=== PATIENT | male | born 1935 | race Caucasian/White ===

== ENCOUNTER 2018-01-11 00:53 | Inpatient (IN) | payer OTHER, MEDICARE ==
[~2018-01-11] VITALS: Ht 177.8 cm; Wt 61.2 kg
[~2018-01-11 00:53] MED LIST: ALLOPURINOL300 M1 PO; ASPIRIN EC81 M1 PO; CRESTOR10 M1 PO; DAILY MULTIPLE1 EACH PO; LISINOPRIL5 M1 PO; METOPROLOL SUCC50 M2 PO; NITROSTAT0.4 M1 SL; OXYCODONE-ACET1 EACH PO; VITAMIN B122500 MC1; VITAMIN D3400 UNI1 PO
--- NOTE | 2018-01-11 10:21 | Admission Core Measures ---
Acute Coronary Syndrome (CM) ACS Core Measures Acute Coronary Syndrome Diagnosis No Congestive Heart Failure (NEW) CHF Core Measures Congestive Heart Failure Diagnosis No Cerebrovascular Accident (NEW) CVA Core Measures CVA/TIA Diagnosis No Venous Thromboembolism VTE Core Faviola (View Protocol) VTE Risk Factors Surgery No Mechanical VTE Prophylaxis d/t N/A MechProphylax Ordered No VTE Pharm Prophylaxis d/t NA PharmProphylax ordered Problem List As ranked by this Provider includes Assessment & Plan 1. Unilateral primary osteoarthritis, right hip HOME MEDS Home Med List Allopurinol 300 MG TABLET 1 TAB PO DAILY GOUT (Reported) Aspirin (Ecotrin*) 81 MG TABLET.DR 1 TAB PO DAILY CARDIAC (Reported) Cholecalciferol (Vitamin D3) (Vitamin D3) 400 UNIT TABLET 2 TAB PO DAILY SUPPLEMENT (Reported) Lisinopril 5 MG TABLET 1 TAB PO DAILY CARDIAC (Reported) Metoprolol Succinate 50 MG TAB.ER.24H 1 TAB PO DAILY CARDIAC (Reported) Multivitamin (Daily Multiple Vitamin) 1 EACH TABLET 1 TAB PO DAILY SUPPLEMENT (Reported) Nitroglycerin (Nitrostat) 0.4 MG TAB.SUBL 1 TAB SL AD CARDIAC (Reported) Oxycodone HCl/Acetaminophen (Oxycodone-Acetaminophen 5-325) 5 MG-325 MG TABLET 1 TAB PO TIDPRN PAIN (Reported) Rosuvastatin Calcium (Crestor) 10 MG TABLET 1 TAB PO DAILY CHOLESTEROL ( Reported)
[2018-01-11] MEDS ORDERED: ASPIRIN EC81 M1 PO (10:23)
[2018-01-11] MEDS ORDERED: DILAUDID2 M1 PO (10:23)
[2018-01-11] MEDS ORDERED: MIRALAX17 G1 PO (10:23)
[2018-01-11] MEDS ORDERED: COLACE100 M1 PO (10:23)
[2018-01-11] MEDS ORDERED: PRILOSEC OTC20 M1 PO (10:23)
--- NOTE | 2018-01-11 10:33 | Patient Discharge Instructions ---
Discharge Instructions General Discharge Information You were seen/treated for: Right hip pain related to unilateral primary osteoarthritis You had these procedures: Right total hip replacement Watch for these problems: Increasing pain despite the use of pain medication Increasing redness, warmth or swelling Drainage of any type from incision Inability to bear weight on operative leg Persistent nausea and vomiting Fever greater than 101.5 degrees Do not soak the wound: Yes No bath, but you may shower: Yes Other wound care: Please keep wound clean and dry. No ointments or lotions of any type on or near incision at any time. No exceptions. Your dressing will be changed by your nurse on the second day after your surgery. Daily dry dressing changes are recommended each day thereafter. Do not soak your wound in a bath at any time until otherwise indicated by your surgeon. You may shower, please dry wound immediately after shower with a clean towel. Special Instructions: Aspirin: You are taking this medication to help prevent blood clot formation. Please take with food to protect your stomach lining. Please take as directed. Constipation: Pain medication can cause constipation. Dr. Ivey has recommended that you take Colace and miralax each day. You may discontinue this medication if you develop loose stool or diarrhea. If you wish to continue this medication, it is available over the counter. If you are unable to move your bowels after several days, if you are unable to pass gas and are developing bloating, nausea, or vomiting as a result, please contact your doctor. Diet Continue normal diet: Yes Recommended Diet: Regular Activity Full Activity/No Limits: No Activity Self Limited: Yes Pounds, do NOT lift more than: 10 Acute Coronary Syndrome Inclusion Criteria At DC or during hospital stay patient has or had the following: ACS DIAGNOSIS No Discharge Core Measures Meds if any: Prescribed or Continued at Discharge Meds if any: NOT Prescribed or Continued at Discharge Congestive Heart Failure Inclusion Criteria At DC or during hospital stay patient has or had the following: CHF DIAGNOSIS No Discharge Core Measures Meds if any: Prescribed or Continued at Discharge Meds if any: NOT Prescribed or Continued at Discharge Cerebrovascular accident Inclusion Criteria At DC or during hospital stay patient has or had the following: CVA/TIA Diagnosis No Discharge Core Measures Meds if any: Prescribed or Continued at Discharge Meds if any: NOT Prescribed or Continued at Discharge Venous thromboembolism Inclusion Criteria VTE Diagnosis No VTE Type NONE VTE Confirmed by (Test) NONE Discharge Core Measures - Per Current guidelines, there needs to be overlap - treatment for the first 5 days of Warfarin therapy. - If discharged on Warfarin prior to 5 days of - overlap therapy, the patient will need to be - assessed for post discharge needs including - *Post discharge parental anticoagulation - *Warfarin and/or parental anticoagulation education - *Follow up date to check INR post discharge At least 5 days overlap therapy as Inpatient No Meds if any: Prescribed or Continued at Discharge Note: Overlap Therapy is Warfarin and Anticoagulant Meds if any: NOT Prescribed or Continued at Discharge
--- NOTE | 2018-01-11 10:36 | Surgical Discharge Summary ---
Visit Information Visit Dates Admission Date: 01/11/18 Discharge Date: 01/12/18 History of Present Illness Chief Complaint: Right hip pain related to unilateral primary osteoarthritis Surgical History Pertinent Surgical History: non-contributory Review of Systems: See H&P Hospital Course Course Attending Physician: Maurilio Ivey MD Primary Care Physician: Jj Monk MD Hospital Course: Patient was admitted to the hospital for an elective total joint replacement. The procedure was tolerated well and patient was transferred to a general surgical floor. Diet was advanced and tolerated, and the patient voided spontaneously. The patient was evaluated and treated by physical therapy. Hemovac was removed prior to discharge. At the time of hospital discharge, the vital signs were stable, neurovascular status was intact and pain was controlled with the use of oral pain medications. Allergies: Coded Allergies: No Known Allergies () Disposition Summary Disposition Principal Diagnosis: Right hip unilateral primary osteoarthritis Additional Diagnosis: None Discharge Disposition: home health services Discharge Instructions General Discharge Information Code Status: Full Code Patient's Diet: Regular, advance as tolerated Patient's Activity: WBAT Follow-Up Instructions/Appts: Follow up with Dr. Ivey in 6 weeks from date of surgery. Please call his office to arrange and/or confirm this appointment. Medications at Discharge Discharge Medications: Stop taking the following medications: Aspirin (Ecotrin*) 81 MG TABLET.DR ORAL DAILY Oxycodone HCl/Acetaminophen (Oxycodone-Acetaminophen 5-325) 5 MG-325 MG TABLET ORAL THREE TIMES A DAY NEEDED Continue taking these medications: Allopurinol (Allopurinol) 300 MG TABLET 1 Tablet ORAL DAILY Cyanocobalamin (Vitamin B-12) (Vitamin B12) 2,500 MCG TABLET Cholecalciferol (Vitamin D3) (Vitamin D3) 400 UNIT TABLET 2 Tablet ORAL DAILY Lisinopril (Lisinopril) 5 MG TABLET 1 Tablet ORAL DAILY Metoprolol Succinate (Metoprolol Succinate) 50 MG TAB.ER.24H 1 Tablet ORAL DAILY Rosuvastatin Calcium (Crestor) 10 MG TABLET 1 Tablet ORAL DAILY Multivitamin (Daily Multiple Vitamin) 1 EACH TABLET 1 Tablet ORAL DAILY Nitroglycerin (Nitrostat) 0.4 MG TAB.SUBL 1 Tablet SUBLINGUAL As Directed Instructions: 1st sign of attack; may repeat every 5 minutes until relief; if pain persists after 3 tablets in 15 minutes, prompt medical att Start taking the following new medications: Aspirin (Ecotrin*) 81 MG TABLET.DR 1 Tablet ORAL TWICE DAILY Qty = 60 No Refills Docusate Sodium (Colace) 100 MG CAPSULE 1 Capsule ORAL TWICE DAILY Qty = 14 No Refills Instructions: DISCONTINUE USE IF YOU DEVELOP LOOSE STOOL OR DIARRHEA Polyethylene Glycol 3350 (Miralax) 17 GRAM POWD.PACK 1 Packet ORAL DAILY Qty = 7 No Refills Instructions: dissolve in water, DISCONTINUE USE IF YOU DEVELOP LOOSE STOOL OR DIARRHEA Hydromorphone HCl (Dilaudid) 2 MG TABLET 1-2 Tablet ORAL EVERY 4-6 HOURS NEEDED as needed for PAIN Qty = 36 No Refills Omeprazole Magnesium (Prilosec Otc) 20 MG TABLET.DR 1 Tablet ORAL DAILY Qty = 30 No Refills
--- NOTE | 2018-01-11 12:09 | RADIOLOGY REPORT ---
EXAMINATION: XR HIP, RIGHT CLINICAL INFORMATION: Status post right total hip arthroplasty. COMPARISON: There are no prior studies available for comparison. TECHNIQUE: AP and cross table lateral views of the right hip were obtained. FINDINGS: The study demonstrates sequelae of a right total hip arthroplasty. The hardware appears intact and in good anatomical alignment. Postoperative changes with air in the periarticular soft tissues and a drain are noted. IMPRESSION: 1. The study demonstrates sequelae of a right total hip arthroplasty.
--- NOTE | 2018-01-11 13:23 | PN- Orthopedic ---
Subjective Subjective: PT IN PACU, AWAKE AND ALERT, STILL WITH SOME BILATERAL NUMBNESS IN LOWER EXTREMITIES, LIMITED MOBILITY. TOELRATING LIQUIDS, DUE TO VOID dENEIS CP/SPB/SIM/FEVERS Objective Vital Signs and I&Os vss AFREBRILE Intake & Output 01/11 1600 01/11 0800 01/11 0000 01/10 1600 01/10 0800 01/10 0000 Intake Total Output Total Balance Patient 135 lb Weight Physical Exam: GEN- NAD RESP-CLEAR CARDIAC-RRR ABD- SOFT, NT EXT- RIGHT HIP SOFT, NONTENDER. DRESSING CLEAN AND DRY, HEMOVAC DRAIN INPLACE WITH MINIMAL SANG DRAINAGE IN CANISTER. 2+ DP PULSE ON RIGHT. Assessment/Plan Assessment/Plan 82YO M SP RIGHT RODDY POD0. STABLE WITH SPINAL STILL WEARING OFF IN PACU CONT 24HR GINNY-OP ABX PAIN MANAGEMENT DVT-PPX- ASA BID, ALPS AND EARLY AMBULATION LIKELY REMOVE DRAIN TOMORROW LONG OUTPUT IS MINIMAL PHYSICAL THERAPY- WBAT REG DIET BOWEL REGIMEN REGULAR HOME MEDS DC PLANNING- LIKELY HOME TOMORROW WITH HOME HEALTH SERVICES Core Measures Venous Thromboembolism VTE Risk Factors Surgery No Mechanical VTE Prophylaxis d/t N/A MechProphylax Ordered No VTE Pharm Prophylaxis d/t NA PharmProphylax ordered
--- NOTE | 2018-01-11 14:43 | Operative Report ---
Operative/Inv Procedure Report Surgery Date: 01/11/18 Name of Procedure: Right total hip replacement Pre-Operative Diagnosis: Primary right hip DJD Post-Operative Diagnosis: Same Estimated Blood Loss: 350 Surgeon/Furniture Assembly Supervisor: Loni MENDOZA,Maurilio Arceo Anesthesia: block Operative/Procedure Note Note: Description of Procedure: The patient was taken to the operating room and positively identified. After induction of spinal anesthesia and administration of appropriate pre-operative antibiotics, the patient was positioned supine on the operating room table and all bony prominences were well padded. After performing a surgical timeout, the right lower extremity was prepped and draped in the usual sterile fashion. A direct anterior approach was made to the right hip. The incision was carried sharply through superficial soft tissues to the level of the fascia. Meticulous hemostasis was maintained with Bovie electocautery. The fascia over the tensor fascia donnie muscle was opened sharply and the interval between the TFL and the sartorius was entered bluntly taking care to stay lateral to the lateral femoral cutaneous nerve. Retractors were placed around the femoral neck and the pericapsular fat was identified. The ascending branches of the lateral femoral circumflex vessels were identified and carefully coagulated. The pericapsular fat and anterior capsule were then resected. A napkin ring osteotomy was performed and the femoral head was removed without difficulty. Attention was then turned to the acetabulum. After appropriate placement of retractors, the acetabulum was exposed. Soft tissue was cleaned from the acetabular margin and notch. Overhanging osteophytes were removed and the teardrop was exposed. The acetabulum was then sequentially reamed to accept a 62 mm Inna Tritanium hemispherical solid shell. This was impacted into place in the appropriate position and fitted with a 36 mm Trident X3 zero degree polyethylene insert. Attention was then turned to the femur. After performing the appropriate ligament releases, the proximal femur was exposed. It was then sequentially broached to accept a size 7 Inna Accolade II stem. This was trialed for leg length and stability. The trial component was removed and the final component was impacted into place. The trunnion was carefully cleaned and fit with a 36 mm, +2.5 Biolox delta ceramic femoral head. The hip was reduced and put through a full range of motion and found to be stable. The articular space was then irrigated with sterile saline. The periarticular soft tissues were infilitrated with Marcaine. The fascial layer was closed with interrupted #1 vicryl suture and the skin was re-approximated with interrupted 2 -0 vicryl. The skin was closed with a running 3-0 V-Lock suture. Steri-strips and a sterile dressing were applied. The patient was awakened and taken to the recovery room in satisfactory condition.
[2018-01-11 17:56] VITALS: BP 130/70
[2018-01-11 21:46] VITALS: BP 110/60
[2018-01-12 00:11] VITALS: BP 122/66
[2018-01-12 04:12] VITALS: BP 126/68
[2018-01-12 08:00] VITALS: BP 126/68; BP 130/60
--- NOTE | 2018-01-12 08:51 | PN- Orthopedic ---
Subjective Subjective: Patient reports hip disomfort which is well controlled with current pain regimen. He also reports heartburn unrelieved with Prilosec. He is tolerating a diet, voiding spontanously and was cleared by PT for home PT. He offers no other complaints. Objective Vital Signs and I&Os Vital Signs Date Time Temp Pulse Resp B/P B/P Pulse O2 O2 Flow FiO2 Mean Ox Delivery Rate 01/12 08 98.2 73 18 126/68 01/12 0412 98.2 73 18 126/68 99 Room Air 01/12 0011 97.8 93 18 122/66 97 Room Air 01/11 2146 97.4 63 16 110/60 97 01/11 1756 100.0 73 18 130/70 97 Intake & Output 01/12 1600 01/12 0800 01/12 0000 01/11 1600 01/11 0800 01/11 0000 Intake Total 705 465 Output Total 0 720 Balance 705 -255 Intake, IV 525 225 Intake, Oral 180 240 Number 0 Bowel Movements Output, 0 20 Drainage Output, Urine 700 Patient 135 lb Weight Weight Reported by Patient Measurement Method Physical Exam: Gen - resting comfortaly in a chair in nad Cardiac - S1S2 noted Lungs - CTAB Ext - R hip dressing moderately saturated with sanguineous drainage in the inferior aspect, hv in place, with 0 cc recorded overnight, removed at bedside, dressing changed due to saturation, moves all extremities, motor and senosry intact, compartment soft, alps and khushi in place, no edema or calf tenderness. Current Medications: Current Medications Sig/Se Start time Last Medication Dose Route Stop Time Status Admin Acetaminophen 1,000 MG Q6 01/11 1200 DC 01/12 IV 01/12 0601 0522 Acetaminophen 975 MG ONCE 01/11 0000 DC PO 01/11 2359 Allopurinol 300 MG DAILY 01/12 0900 AC 01/12 PO 0759 Aspirin Buffered 81 MG BID 01/11 2100 AC 01/12 PO 0800 Atorvastatin Calcium 40 MG 1700 01/11 1700 AC 01/11 PO 1729 Calcium Carbonate 500 MG DAILY 01/12 0900 AC 01/12 PO 0800 Cefazolin Sodium 2 GM IQ8 01/11 1600 DC 01/11 N/A 1 UNIT IV 01/12 0029 2302 Cefazolin Sodium 2,000 MG ONCE 01/11 0000 DC IV 01/11 2359 Dextrose/Sodium 1,000 ML .[id number] 01/11 1515 DC 01/12 Chloride IV 0521 Docusate Sodium 100 MG BID 01/11 2100 AC 01/12 PO 0804 Hydromorphone HCl 2 MG Q4P PRN 01/11 1515 AC PO Hydromorphone HCl 4 MG Q4P PRN 01/11 1515 AC 01/11 PO 2305 Lisinopril 5 MG DAILY 01/12 0900 AC 01/12 PO 0800 Metoprolol Succinate 50 MG DAILY 01/12 0900 AC PO Morphine Sulfate 2 MG Q2P PRN 01/11 1515 AC 01/11 IV 1730 Multivitamins 1 TAB DAILY 01/12 0900 AC 01/12 PO 0800 Omeprazole 40 MG DAILY AC 01/12 0700 AC 01/12 PO 0520 Ondansetron HCl 4 MG Q6P PRN 01/11 1515 AC 01/12 IV 0000 Oxycodone HCl 10 MG ONCE 01/11 0000 DC PO 01/11 2359 Polyethylene Glycol 17 GM DAILY 01/12 0900 AC 01/12 PO 0804 Promethazine HCl 12.5 MG Q6P PRN 01/11 1515 AC IV 01/18 1014 Results Last 48 Hours of Labs: Laboratory Tests 01/12 0750 Chemistry Sodium Pending Potassium Pending Chloride Pending Carbon Dioxide Pending Anion Gap Pending BUN Pending Creatinine Pending BUN/Creatinine Ratio Pending Hematology CBC w Diff Pending WBC Pending RBC Pending Hgb Pending Hct Pending MCV Pending MCH Pending MCHC Pending RDW Pending Plt Count Pending MPV Pending Assessment/Plan Assessment/Plan 82 M POD 1 s/p R THR, who is recovering well, hv pulled at bedside, cleared by PT and stable for discharge Cont reg diet D/c IVF Pain regimen prn Asa 82 bid dvt ppx Tums ordered for heartburn OOB PT, WBAT Home meds on board Bowel regimen on board D/c home with hhs pending labs Core Measures Venous Thromboembolism VTE Risk Factors Surgery No Mechanical VTE Prophylaxis d/t N/A MechProphylax Ordered No VTE Pharm Prophylaxis d/t NA PharmProphylax ordered
[2018-01-12 09:41] LABS: ABSOLUTE BASOPHIL COUNT 0 /CUMM (0.0-0.2); ABSOLUTE EOSINOPHIL COUNT 0 /CUMM (0.0-0.7); ABSOLUTE GRANULOCYTE CT 5.8 /CUMM (1.4-6.5); ABSOLUTE LYMPH COUNT 1.4 /CUMM (1.2-3.4); ABSOLUTE MONOCYTE COUNT 1.2 /CUMM (0.10-0.60); BASOPHIL % 0.3 % (0.0-2.0); EOSINOPHIL % 0 % (0-5); GRANULOCYTE % 68.9 % (42.2-75.2); HEMATOCRIT 32.4 % (42-52); MEAN CORPUSCULAR HGB 30.4 PG (27.0-31.0); MEAN CORPUSCULAR VOLUME 89.2 FL (80.0-94.0); MEAN PLATELET VOLUME 9.2 FL (7.4-10.4); PLATELET COUNT 162 /CUMM (130-400); RBC DISTRIBUTION WIDTH 14.3 % (11.5-14.5); RED BLOOD CELL CT 3.63 /CUMM (4.70-6.10); WHITE BLOOD CELL COUNT 8.4 /CUMM (4.8-10.8)
== END 2018-01-12 14:24 | disposition home health service (06) | DRG 470 ==
LOC: SDA 00:53 → ENRESERV 12:07 → CANRESERV 12:07 → ENRESERV 12:12 → ENTRNSPT 13:38 → EDTRNSPTSTS 14:09 → EDTRNSPT 14:09 → 2NA 14:15 → CMPTRNSPT 14:22 → ENPENDDIS 01-12 10:04 → 2NA 01-12 14:24
PROVIDERS: Nurse Practitioner
PROC: 0SR904A Replacement of Right Hip Joint with Ceramic on Polyethylene Synthetic Substitute, Uncemented, Open Approach (ICD-10-PCS; principal; 2018-01-11)
DX: M16.11 Unilateral primary osteoarthritis, right hip (principal); R00.1 Bradycardia, unspecified; I35.0 Nonrheumatic aortic (valve) stenosis; E78.5 Hyperlipidemia, unspecified; I25.119 Atherosclerotic heart disease of native coronary artery with unspecified angina pectoris; Z79.82 Long term (current) use of aspirin; Z79.891 Long term (current) use of opiate analgesic; I10 Essential (primary) hypertension; N40.0 Benign prostatic hyperplasia without lower urinary tract symptoms; Z98.61 Coronary angioplasty status; H91.90 Unspecified hearing loss, unspecified ear; M10.9 Gout, unspecified
CPT/HCPCS: 2NAP; 36592; 73502-RT; 82436; 97116-GO; 97161-GP; 97530-GO; 97535-GO; J0131; J0690; J0735; J2405; J2550; J3490; J7042